=== PATIENT | female | born 1940 ===

== ENCOUNTER 2017-07-14 10:59 | Outpatient (CLI) | payer OTHER ==
[~2017-07-14 10:59] MED LIST: AMOX1TAB12 PO; AVALIDE 150/12.1 TAB; AVAPRO150 MG; INTESTINEX680 MG PO
== END 2017-07-14 11:24 | disposition home or self-care (01) ==
LOC: LAB 10:59
DX: I10 Essential (primary) hypertension (principal); E11.9 Type 2 diabetes mellitus without complications; E03.8 Other specified hypothyroidism; E78.2 Mixed hyperlipidemia; E55.9 Vitamin D deficiency, unspecified

== ENCOUNTER 2017-07-17 10:42 | Outpatient (CLI) | payer OTHER | END 2017-07-17 11:06 | disposition home or self-care (01) | LOC: MRI 10:42 | DX: M54.89 Other dorsalgia (principal) | CPT/HCPCS: 72148 ==

== ENCOUNTER 2017-07-17 10:44 | Outpatient (CLI) | payer OTHER | END 2017-07-17 11:04 | disposition home or self-care (01) | LOC: MAMO-SONO 10:44 | DX: Z12.31 Encounter for screening mammogram for malignant neoplasm of breast (principal); Z87.898 Personal history of other specified conditions; N60.21 Fibroadenosis of right breast; N60.22 Fibroadenosis of left breast ==

== ENCOUNTER 2017-07-17 12:14 | Outpatient (CLI) | payer OTHER | END 2017-07-17 14:00 | disposition home or self-care (01) | LOC: LAB 12:14 | DX: I10 Essential (primary) hypertension (principal); E11.9 Type 2 diabetes mellitus without complications; E03.8 Other specified hypothyroidism; E78.2 Mixed hyperlipidemia; E55.9 Vitamin D deficiency, unspecified ==

== ENCOUNTER → 2017-07-31 | Outpatient (CLI) | payer OTHER | END | disposition home or self-care (01) | LOC: TOM 10:16 | DX: K57.81 Diverticulitis of intestine, part unspecified, with perforation and abscess with bleeding (principal) ==

== ENCOUNTER 2017-08-10 11:26 | Outpatient (CLI) | payer OTHER | END 2017-08-10 11:40 | disposition home or self-care (01) | LOC: LAB 11:26 | DX: D72.818 Other decreased white blood cell count (principal); D69.6 Thrombocytopenia, unspecified ==

== ENCOUNTER 2017-10-18 11:00 | Outpatient (CLI) | payer OTHER | END 2017-10-18 11:06 | disposition home or self-care (01) | LOC: LAB 11:00 | DX: E11.9 Type 2 diabetes mellitus without complications (principal); I10 Essential (primary) hypertension; E03.8 Other specified hypothyroidism; E78.2 Mixed hyperlipidemia; E55.9 Vitamin D deficiency, unspecified; E83.52 Hypercalcemia ==

== ENCOUNTER 2017-12-01 10:53 | Outpatient (CLI) | payer OTHER | END 2017-12-01 11:00 | disposition home or self-care (01) | LOC: RAD 10:53 → LAB 10:53 | DX: E03.8 Other specified hypothyroidism (principal); I10 Essential (primary) hypertension; E11.9 Type 2 diabetes mellitus without complications; D64.89 Other specified anemias; D51.0 Vitamin B12 deficiency anemia due to intrinsic factor deficiency; M17.0 Bilateral primary osteoarthritis of knee ==

== ENCOUNTER 2018-01-24 12:43 | Outpatient (CLI) | payer OTHER | END 2018-01-24 12:51 | disposition home or self-care (01) | LOC: LAB 12:43 | DX: D64.89 Other specified anemias (principal); D50.8 Other iron deficiency anemias ==

== ENCOUNTER 2018-09-04 09:49 | Outpatient (CLI) | payer OTHER | END 2018-09-04 09:50 | disposition home or self-care (01) | LOC: SONOGRAMA 09:49 | DX: D72.818 Other decreased white blood cell count (principal); D47.2 Monoclonal gammopathy; D69.8 Other specified hemorrhagic conditions ==

== ENCOUNTER 2018-11-26 10:18 | Outpatient (CLI) | payer OTHER | END 2018-11-26 10:32 | disposition home or self-care (01) | LOC: MRI 10:18 | DX: G44.221 Chronic tension-type headache, intractable (principal); M54.89 Other dorsalgia; M15.8 Other polyosteoarthritis | CPT/HCPCS: 70551; 72156; 72157; 72158; A9575 ==

== ENCOUNTER 2021-08-17 10:18 | Outpatient (CLI) | payer OTHER | END 2021-08-17 10:34 | disposition home or self-care (01) | LOC: TOM 10:18 | PROVIDERS: ATTEND Internal Medicine | DX: K61.1 Rectal abscess (principal) | CPT/HCPCS: 74177; Q9965 ==

== ENCOUNTER 2022-12-12 14:17 | Emergency (ER) | payer OTHER ==
[~2022-12-12] VITALS: Ht 152.4 cm; Wt 68.0 kg
[2022-12-13] MEDS ORDERED: AMOX-CLAV 875-1 EAC1 PO (03:09)
== END 2022-12-13 05:30 ==
LOC: ER 14:17
DX: R10.9 Unspecified abdominal pain (principal); K60.4 Rectal fistula